=== PATIENT | male | born 2000 | race Caucasian/White ===

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

== ENCOUNTER 2022-06-09 20:24 | Emergency (ER) | payer MEDICAID, SELFPAY ==
[2022-06-09 20:24] VITALS: BP 148/95; PULSE 116; RESP 18; TEMP 36.3; O2SAT 99; BMI 22.1
--- NOTE | 2022-06-09 21:00 | RAD_ITS ---
STUDY: X-RAY - LEFT HAND REASON FOR EXAM: Male, 21 years old. He notices that when the symptoms happen he breath TECHNIQUE: 3 view(s) of the hand. COMPARISON: None. FINDINGS: Normal radiocarpal articulation. Normal distal radioulnar joint. Normal visualized carpal bones. Normal carpal articulations Normal carpometacarpal articulation of the thumb. Normal second through fifth carpometacarpal joints. Acute nondisplaced fracture of the base of the fifth metacarpal Normal metacarpophalangeal joint of the thumb. Normal interphalangeal joint of the thumb. Normal proximal and distal phalanges of the thumb. Normal metacarpophalangeal joints of the second through fifth fingers. Normal proximal and distal interphalangeal joints of the second through fifth fingers. Normal phalanges of the second through fifth fingers. Diffuse soft tissue swelling the dorsal surface of the hand RAD/Hand Min 3 Views IMPRESSION: Acute nondisplaced fracture of the base of fifth metacarpal Electronically Signed: Rich Montes De Oca MD at 21:12 EDT ,
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
--- NOTE | 2022-06-09 21:32 | ED.RN ---
pt stated i need to leave or my ride with leave me here. i encouraged him to wait to receive radiologists read on x-ray because it looked fractured. pt stated ill dress it a home. dr informed of pt's departure. caryl yun. rn [id number]
[2022-06-09 21:35] VITALS: RESP 15
== END 2022-06-09 21:35 | disposition left against medical advice (07) ==
PROVIDERS: Emergency Provider Emergency Medicine; PCP Family Medicine; Visit Provider Emergency Medicine
DX: S62.347A Nondisplaced fracture of base of fifth metacarpal bone, left hand, initial encounter for closed fracture (principal); F17.210 Nicotine dependence, cigarettes, uncomplicated; Y04.0XXA Assault by unarmed brawl or fight, initial encounter; Z53.29 Procedure and treatment not carried out because of patient's decision for other reasons
CPT/HCPCS: 73130; 99282

== ENCOUNTER 2022-11-27 17:34 | Emergency (ER) | payer MEDICAID, SELFPAY ==
[2022-11-27 17:34] VITALS: BP 155/101; PULSE 85; RESP 18; TEMP 36; O2SAT 98; BMI 21.4
[2022-11-27] MEDS: Lidocaine 1% /Epi 1:100 (20ml) 20 ML Vial INFILT (18:10)
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
== END 2022-11-27 19:27 | disposition home or self-care (01) ==
PROVIDERS: Emergency Provider Emergency Medicine; PCP Family Medicine; Visit Provider Emergency Medicine
DX: S01.01XA Laceration without foreign body of scalp, initial encounter (principal); F17.210 Nicotine dependence, cigarettes, uncomplicated; Y04.8XXA Assault by other bodily force, initial encounter
CPT/HCPCS: 13121; 99284

== ENCOUNTER 2023-01-14 21:03 | Emergency (ER) | payer MEDICAID, SELFPAY ==
[2023-01-14 21:04] VITALS: BP 178/112; PULSE 118; RESP 16; TEMP 36; O2SAT 98
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
[2023-01-14] MEDS: Clindamycin HCl 150 MG Capsule 300 MG PO (21:20)
== END 2023-01-14 21:35 | disposition home or self-care (01) ==
LOC: ED 21:32
PROVIDERS: Emergency Provider Emergency Medicine; PCP Family Medicine; Visit Provider Emergency Medicine
DX: K04.7 Periapical abscess without sinus (principal); R50.9 Fever, unspecified; R01.1 Cardiac murmur, unspecified; N28.9 Disorder of kidney and ureter, unspecified; F15.90 Other stimulant use, unspecified, uncomplicated; F17.210 Nicotine dependence, cigarettes, uncomplicated; R51.9 Headache, unspecified
CPT/HCPCS: 99283

== ENCOUNTER 2024-03-13 19:16 | Emergency (ER) | payer MEDICAID, SELFPAY ==
[2024-03-13 19:17] VITALS: BP 131/85; PULSE 68; RESP 15; TEMP 36.4; O2SAT 100; BMI 27.6
--- NOTE | 2024-03-13 20:18 | ED.RN ---
Pt comes out to desk and states he wants to go home, he doesn't want to wait for resources.
--- NOTE | 2024-03-13 20:33 | EDS_ITS ---
HPI HPI - Psych History of Present Illness Chief Complaint: Mental Health Narrative Narrative: 23-year-old male presenting from rehab. He states that he has an outpatient rehab but he is allowed to leave whenever he needs to. He states he was feeling depressed after a meeting last night which reminded of the of his brother who he states overdose. He states he wants us have some resources. He states that he has seen people from [facility] but does not want to speak to anybody from there because he does not like them. Patient denies suicidal ideation or homicidal ideation. He states he just needs to talk [facility] Medical History Smoker Home Medications ?Medication ?Instructions ?Recorded ?Last Taken ?Type aripiprazole 5 mg tablet 5 mg PO DAILY 03/13/24 Unknown History Allergy/AdvReac Type Severity Reaction Status Date / Time Penicillins Allergy Swelling Verified 03/13/24 19:21 Social History household members: none Smoking Status: Current every day smoker tobacco type: cigarettes substance use type: amphetamines ROS ROS ED Constitutional Constitutional ED: Denies chills, fever(s) or sweats Eyes Eyes: Denies blurry vision or change in vision ENT ENT ED: Denies ear pain or sore throat Cardiovascular Cardiovascular: Denies chest pain, palpitations or racing heartbeat Respiratory/Chest Respiratory/Chest: Denies cough, dyspnea or sputum Gastrointestinal Gastrointestinal: Denies abdominal pain, constipation, diarrhea, nausea or vomiting Genitourinary Genitourinary ED: Denies dysuria, hematuria or urinary frequency Musculoskeletal Musculoskeletal: Denies arthralgias, myalgias or neck pain Integumentary Denies abscess, Abrasions or rash Neurologic Neurologic: Denies headache(s), paresthesias or weakness Psychiatric Psychiatric: Reports depression; Denies anxiety, suicidal ideation or suicidal thoughts Endocrine Endocrinology: Denies polydipsia or polyuria EXAM Physical Exam Const Vital Signs: 03/13/24 19:17 Temperature 97.5 F L Temperature Source Temporal Pulse Rate 68 Respiratory Rate 15 Blood Pressure 131/85 H Blood Pressure Mean 100 Pulse Ox 100 Oxygen Delivery Method Room Air Positive well nourished General Appearance ED: NAD; Negative for pallor HEENT Reports moist mucous membranes normocephalic and atraumatic Eyes PERRL and EOMs intact bilaterally Resp normal respiratory effort and clear to auscultation bilaterally Auscultation: Negative for rales, rhonchi or wheezes Extremity normal to inspection Neuro oriented x3 and CN's II-XII intact bilaterally Sensorium / Orientation: alert Motor Exam: strength 5/5 throughout Psych mental status grossly normal Appearance: grossly normal Attitude: calm and engaged Activity / Motor Behavior: appropriate eye contact Speech: normal speech Thought Process: normal thought process Attention / Concentration: attention grossly intact and concentration grossly intact Memory / Cognition: memory grossly intact Insight: insight good Judgement: judgement good Skin General Skin Exam: Negative for jaundice or pallor MDM MDM MDM Narrative Medical decision making narrative: 23-year-old male presenting for resources he states. He states he does not want to talk to anybody from [facility]. I spoke with the charge nurse who is looking for resources and states she only believes may have suffered 180. We attempted to reach out to the crisis counselor who is on-call to see if she had any other resources per patient request and before that could happen the patient eloped from the emergency room. He was not suicidal or homicidal. Impression: 1. Depression Discharge Plan Triage Chief Complaint: Mental Health ED Provider: Lamonte Oreilly Dx/Rx/DC Orders Prescriptions: No Action aripiprazole 5 mg tablet 5 mg PO DAILY Primary Care Provider: Myke Powers Referrals: Myke Powers MD [Primary Care Provider] - Print Language: Niuean Disposition Disposition: LEFT WITHOUT BEING SEEN
== END 2024-03-13 20:38 | disposition left against medical advice (07) ==
PROVIDERS: Emergency Provider Student in an Organized Health Care Education/Training Program; PCP Family Medicine; Visit Provider Student in an Organized Health Care Education/Training Program
DX: F32.A Depression, unspecified (principal); F17.210 Nicotine dependence, cigarettes, uncomplicated
CPT/HCPCS: 99282